=== PATIENT | female | born 1970 | race Caucasian/White ===

== ENCOUNTER 2017-11-05 18:31 | Emergency (ER) | payer OTHER ==
[~2017-11-05] VITALS: Ht 142.2 cm; Wt 63.6 kg
[2017-11-05] MEDS ORDERED: GABA-529 PO (18:47)
[2017-11-05] MEDS ORDERED: FERR-89 PO (18:47)
[2017-11-05] MEDS ORDERED: HYDR-4031 PO (18:47)
[2017-11-05] MEDS ORDERED: PROZ10 PO (18:47)
[2017-11-05] MEDS ORDERED: NAPR250T4 PO (18:47)
[2017-11-05 21:32] VITALS: BP 127/74
== END 2017-11-05 21:36 | disposition home or self-care (01) ==
LOC: EMS 18:35
DX: M54.5 Low back pain (principal); G89.29 Other chronic pain; F12.90 Cannabis use, unspecified, uncomplicated; F17.210 Nicotine dependence, cigarettes, uncomplicated
CPT/HCPCS: 99283; 99406

== ENCOUNTER 2020-12-30 01:51 | Emergency (ER) | payer OTHER ==
[~2020-12-30] VITALS: Ht 142.2 cm; Wt 52.3 kg
[~2020-12-30 01:51] MED LIST: CEPH500C3 PO; FERR-89 PO; FLUO-191 PO; FLUO10CA24 PO; GABA-1181 PO; GABA-1216 PO; HYDR-4031 PO; NAPR-1025 PO; OMEP20 PO
[2020-12-30 03:40] LABS: BASOPHILS % (AUTO) 0.4 % (0.0-2.0); EOSINOPHILS % (AUTO) 0.6 % (1.0-6.0); HEMATOCRIT 39.2 % (36-46); HEMOGLOBIN 13.3 g/dL (12.0-16.0); LYMPHOCYTES # (AUTO) 2.1 K/uL (1.0-4.8); LYMPHOCYTES % (AUTO) 26.6 % (22.0-44.0); MEAN CORPUSCULAR HEMOGLOBIN 29.6 pg (26.0-34.0); MEAN CORPUSCULAR HGB CONC 33.9 G/dL (31.0-37.0); MEAN CORPUSCULAR VOLUME 87 fL (80-100); MONOCYTES # (AUTO) 0.5 K/uL (0.1-1.0); MONOCYTES % (AUTO) 6.8 % (2.0-9.0); NEUTROPHILS # (AUTO) 5.1 K/uL (1.8-7.7); NEUTROPHILS % (AUTO) 65.6 % (40.0-70.0); PLATELET COUNT (AUTO) 300 K/uL (150-450)
[2020-12-30 03:43] LABS: ANION GAP 9 mmol/L (8-16); CALCIUM, TOTAL 9.2 mg/dL (8.8-10.5); CARBON DIOXIDE 28 mmol/L (22-29); CHLORIDE 105 mmol/L (98-107); GLOMERULAR FILTR. RATE CALC > 60 mL/min (>60); GLUCOSE,RANDOM 110 mg/dL (70-110); POTASSIUM 4.2 mmol/L (3.5-5.1); SODIUM SERUM 142 mmol/L (136-145); UREA NITROGEN, BLOOD 19 mg/dL (7-18)
[2020-12-30 03:49] LABS: ALANINE AMINOTRANSFERASE 69 U/L (12-78); ALKALINE PHOSPHATASE 71 U/L (46-116); ASPARTATE AMINOTRANSFERASE 32 U/L (15-37); BILIRUBIN,TOTAL 0.4 mg/dL (0.1-1.0); LIPASE 122 U/L (73-393); TOTAL PROTEIN, SERUM 7.3 g/dL (6.4-8.2)
[2020-12-30 05:22] LABS: APPEARANCE,URINE CLEAR (CLEAR); BILIRUBIN,URINE NEGATIVE (NEGATIVE); GLUCOSE, URINE (UA) NEGATIVE (NEGATIVE); KETONES,URINE NEGATIVE (NEGATIVE); LEUKOCYTE ESTERASE ,URINE NEGATIVE (NEGATIVE); NITRATE,URINE NEGATIVE (NEGATIVE); OCCULT BLOOD,URINE NEGATIVE (NEGATIVE); PH,URINE 6.5 (5.0-8.0); PROTEIN,URINE NEGATIVE (NEGATIVE); UROBILINOGEN,URINE 0.2 mg/dL (<=1.0)
[2020-12-30] MEDS ORDERED: KETOROLAC TROMETHAMINE 60 MG/2 ML VIAL IM ONE (07:15)
[2020-12-30 08:35] VITALS: BP 123/77
== END 2020-12-30 08:49 | disposition home or self-care (01) ==
LOC: EMS 01:52
DX: K80.20 Calculus of gallbladder without cholecystitis without obstruction (principal); F41.9 Anxiety disorder, unspecified; F17.210 Nicotine dependence, cigarettes, uncomplicated; Z88.8 Allergy status to other drugs, medicaments and biological substances
CPT/HCPCS: 36415; 74176; 80053; 81003; 83690; 85025; 96372; 99285; J1885

== ENCOUNTER 2022-01-22 21:17 | Emergency (ER) | payer OTHER ==
[~2022-01-22] VITALS: Ht 142.2 cm; Wt 72.7 kg
[~2022-01-22 21:17] MED LIST changes: +CEPH-558 PO; -CEPH500C3 PO; -FERR-89 PO; +FERR325T27 PO; +FLUO-177 PO; -FLUO-191 PO; -HYDR-4031 PO; +HYDR-4808 PO
[2022-01-22] MEDS ORDERED: FLUORESCEIN SODIUM 1 MG STRIP ONE (21:35)
[2022-01-22] MEDS ORDERED: ARIP2TAB27 PO (21:35)
[2022-01-22] MEDS ORDERED: GABA-1181 PO (21:35)
[2022-01-22] MEDS ORDERED: CLON0.1T2 PO (21:35)
[2022-01-22] MEDS ORDERED: HYDR-4808 PO (21:35)
[2022-01-22] MEDS ORDERED: GLAUCOMA EYE DROPS OU (21:35)
[2022-01-22] MEDS ORDERED: PHEN30TA50 PO (21:38)
[2022-01-22] MEDS ORDERED: FLUORESCEIN SODIUM 1 MG STRIP OS ONE (21:45)
[2022-01-22] MEDS ORDERED: PROPARACAINE HCL 0.5% 15 ML OPHTHALMIC SOLUTION OS ONE (21:45)
[2022-01-22] MEDS ORDERED: IBUPROFEN 800 MG TABLET PO ONE (22:00)
[2022-01-22] MEDS ORDERED: POLY10DR3 OS (22:21)
[2022-01-22 22:43] VITALS: BP 138/79
[2022-01-22] MEDS ORDERED: POLYOS OS (23:33)
== END 2022-01-22 22:55 | disposition home or self-care (01) ==
LOC: EMS 21:17
DX: S05.02XA Injury of conjunctiva and corneal abrasion without foreign body, left eye, initial encounter (principal); F41.9 Anxiety disorder, unspecified; K80.80 Other cholelithiasis without obstruction; H40.9 Unspecified glaucoma; F17.210 Nicotine dependence, cigarettes, uncomplicated; Z90.710 Acquired absence of both cervix and uterus; Z98.890 Other specified postprocedural states; Z88.8 Allergy status to other drugs, medicaments and biological substances; Z87.898 Personal history of other specified conditions
CPT/HCPCS: 99283